=== PATIENT | male | born 1980 | race Caucasian/White ===

== ENCOUNTER 2024-02-16 12:16 | Outpatient (AMB) | payer OTHER, SELFPAY ==
--- NOTE | 2024-02-16 12:21 | MHC.OFFWIV ---
Intake Vital Signs 02/16/24 12:22 Height 5 ft 6 in Weight 212 lb BMI 34.2 BP 138/82 Blood Pressure Location Lt brachial Position Sitting Pulse 72 Pulse Source Pulse Oximeter Pulse Oximetry (%) 98 Oxygen Delivery Method Room Air Intake Visit Reasons: [employer] lower middle back pain Intake Note: pt is here for lower to middle back pain for 4 to 5 days denies any injury Patient Tobacco Use Status: Never used Tobacco Allergies codeine Allergy (Severe, Verified 02/16/24 12:23) Unknown Do you need a note to return to daycare/school/sports/work: Yes HPI HPI Comments History of Present Illness Details Patient presents to the walk-in today for sick visit Reports 4 days of left flank pain No known injury, pain is not reproducible Denies fevers, chills, abdominal pain, urinary retention, dysuria Patient denies history of kidney stones Describes the pain as sharp, stabbing and spasming [facility] Social History Patient Tobacco Use Status: Never used Tobacco Review of Systems Const All systems reviewed & are unremarkable except as noted in HPI and below Physical Exam Vital Signs: Last Vital Signs Pulse 72 02/16/24 12:22 BP 138/82 02/16/24 12:22 Pulse Ox 98 02/16/24 12:22 Oxygen Delivery Method Room Air 02/16/24 12:22 BMI result Body Mass Index 34.2 General: awake, alert, oriented. Answers questions appropriately. Fully engaged in examination. Skin: warm, dry, intact HEENT: Normocephalic. Hearing intact. Cardiac: External chest normal in appearance. Respiratory: No cough, audible wheezing or stridor. Abdomen: without gross distension. +CVA tenderness left side. no guarding. MS: No obvious swelling or deformities. Back: nontender to palpation over midline thoracic and midline lumbar vertebrae. nontender to palpation thoracic/lumbar paraspinal muscles Full ROM, no pain with flexion/extension Facet loading negative Neurological: Oriented to person, place, time and situation. Thought process intact. No gait abnormalities appreciated. Psychiatric: Appropriate mood and affect. Good judgment and insight. Results AMB Urinalysis, Automated UA Leukoctes 0 Laura/uL Last Edit by Issac Alvarado CMA on 02/16/24 13:01 UA Nitrite Negative Last Edit by Issac Alvarado CMA on 02/16/24 13:01 UA Urobilinogen 0.2 mg/dL Last Edit by Issac Alvarado CMA on 02/16/24 13:01 UA Protein 0 mg/dL Last Edit by Issac Alvarado CMA on 02/16/24 13:01 UA pH 6.0 Last Edit by Issac Alvarado CMA on 02/16/24 13:01 UA Blood 0 Vasquez/uL Last Edit by Issac Alvarado CMA on 02/16/24 13:01 UA Specific [place] 1.025 Last Edit by Issac Alvarado CMA on 02/16/24 13:01 UA Ketone Negative Last Edit by Issac Alvarado CMA on 02/16/24 13:01 UA Bilirubin 0 mg/dL Last Edit by Issac Alvarado CMA on 02/16/24 13:01 UA Glucose 0 mg/dL Last Edit by Issac Alvarado CMA on 02/16/24 13:01 Assessment & Plan Assessment & Plan (1) Flank pain, acute: Comment: Left Code(s): R10.9 - Unspecified abdominal pain Plan History, physical exam and provocative testing consistent left-sided kidney UA reviewed, negative nitrites, negative blood, negative leukocytes. Flomax 0.5 mg p.o. daily, take until pain resolves Percocet 1 tab every 4-6 hours as needed. Patient advised on cautions for use no driving while taking this medication, do not take with alcohol or other [employer] depressants. Patient has allergy to codeine, but has tolerated Percocet in the past Drink plenty of fluids Patient advised on red flag symptoms when seek treatment in the emergency room. Follow up with primary care doctor or return here for any new or persistent symptoms All questions concerns were answered, patient agrees with the plan. Orders: Orders AMB Urinalysis Automated Today Z13.9 - Encounter for screening, unspecified Medications: New tamsulosin 0.4 mg PO DAILY 10 caps 0RF oxycodone-acetaminophen 5-325 mg (Percocet) Partial Fill upon patient request. 1 tab PO Q4-6H 5 days PRN 14 tabs 0RF pain Coding Level of Care Code New Pt Level 3 (48792) Diagnoses Flank pain, acute R10.9
[2024-02-16 12:22] VITALS: BP 138/82; PULSE 72; O2SAT 98; BMI 34.2
== END 2024-02-16 13:17 | disposition home or self-care (01) ==
PROVIDERS: PCP Hospitalist; Visit Provider Registered Nurse Emergency
DX: R10.9 Unspecified abdominal pain (principal)
CPT/HCPCS: 81003; 99203